=== PATIENT | male | born 1980 | race African-American/Black ===

== ENCOUNTER 2017-03-15 12:02 | Emergency (ER) | payer OTHER ==
[~2017-03-15] VITALS: Ht 162.6 cm; Wt 68.0 kg
[2017-03-15] MEDS ORDERED: CARI350T27 PO (12:17)
[2017-03-15] MEDS ORDERED: BECL8.7A5 PO (12:17)
[2017-03-15] MEDS ORDERED: ALBUTEROL SULFATE 2.5 MG/3 ML NEBU NEB ONE (12:30)
[2017-03-15] MEDS ORDERED: IPRATROPIUM BROMIDE 0.5 MG/2.5 ML NEBU NEB ONE (12:30)
[2017-03-15] MEDS ORDERED: predniSONE 10 MG TABLET PO ONE (12:30)
[2017-03-15] MEDS ORDERED: ALBUTEROL SULFATE 2.5 MG/3 ML NEBU ONE (12:48)
[2017-03-15] MEDS ORDERED: IPRATROPIUM BROMIDE 0.5 MG/2.5 ML NEBU ONE (12:49)
[2017-03-15] MEDS ORDERED: predniSONE 50 MG TABLET ONE (13:15)
[2017-03-15] MEDS ORDERED: predniSONE 10 MG TABLET ONE (13:15)
--- NOTE | 2017-03-15 13:53 | NUR ---
Patient discharged to home in stable conditon. Written and verbal after care instructions given. Patient verbalizes understanding of instructions.PT SAYS FEELS BETTER. PT BREATHING NORMALLY.
[2017-03-15 13:58] VITALS: BP 121/58
== END 2017-03-15 13:59 | disposition home or self-care (01) ==
LOC: ER 12:05
DX: J45.909 Unspecified asthma, uncomplicated (principal); F17.200 Nicotine dependence, unspecified, uncomplicated; Z88.6 Allergy status to analgesic agent
CPT/HCPCS: 71045; A4663; J3590; J7512